=== PATIENT | female | born 1990 | race Caucasian/White ===

== ENCOUNTER 2016-05-13 17:58 | Observation (INO) | payer MEDICAID ==
[~2016-05-13] VITALS: Ht 154.9 cm; Wt 73.9 kg
[~2016-05-13 17:58] MED LIST: FOLI-43 PO; PREN-88 PO
[2016-05-13] MEDS ORDERED: MEPERIDINE HCL/PF 25MG/ML CPJ IV NR (18:30)
[2016-05-13] MEDS ORDERED: LACTATED RINGERS 1,000 ML IV SCH (18:30)
[2016-05-13] MEDS ORDERED: MEPERIDINE HCL/PF 50MG/ML CPJ IV NR (20:20)
[2016-05-13 20:32] VITALS: BP 107/66
== END 2016-05-13 23:25 | disposition home or self-care (01) ==
LOC: L&D 17:58
PROVIDERS: ADMIT Obstetrics & Gynecology; ATTEND Obstetrics & Gynecology
DX: O34.33 Maternal care for cervical incompetence, third trimester (principal); Z3A.36 36 weeks gestation of pregnancy
CPT/HCPCS: 59871; 96360; 96361; 96372; 96374; G0378; J2175; J7070; J7120